=== PATIENT | male | born 1940 ===

== ENCOUNTER 2020-08-04 12:21 | Outpatient (REF) | payer MEDICARE, OTHER, SELFPAY ==
--- NOTE | 2020-08-04 | US_ITS ---
EXAMINATION: US RETROPERITONEAL LIMITED (RENAL ONLY) CLINICAL INFORMATION: Hyperlipidemia. COMPARISON: None TECHNIQUE: Real-time imaging of the kidneys. FINDINGS: RIGHT KIDNEY: 9.6 x 5.2 x 4.3 cm (SAG x AP x TRV). The kidney is normal in size, contour, and echogenicity. Renal cortical thickness is normal. No calculi or focal parenchymal lesions. No hydronephrosis. LEFT KIDNEY: 9.3 x 4.3 x 4.3 cm (SAG x AP x TRV). The kidney is normal in size, contour, and echogenicity. Renal cortical thickness is normal. There is a 1 x 0.8 x 1 cm cyst in the upper pole. No renal calculi, mass or hydronephrosis. US/US renal BI IMPRESSION: Small left renal cyst otherwise unremarkable exam.
== END 2020-08-04 12:22 | disposition home or self-care (01) ==
LOC: HO.US 12:21
PROVIDERS: Visit Provider Internal Medicine Nephrology
DX: R79.89 Other specified abnormal findings of blood chemistry (principal); E78.5 Hyperlipidemia, unspecified
CPT/HCPCS: 76775

== ENCOUNTER 2020-10-27 11:19 | Outpatient (REF) | payer MEDICARE, OTHER, SELFPAY ==
--- NOTE | ~2020-10-27 | US_ITS ---
EXAMINATION: US RETROPERITONEAL LIMITED (RENAL ONLY) CLINICAL INFORMATION: Hyperlipidemia. COMPARISON: None. TECHNIQUE: Routine renal ultrasound and Doppler imaging was performed. FINDINGS: RIGHT KIDNEY: 10.3 x 5.3 x 4.8 cm (SAG x AP x TRV). The kidney is normal in size, contour, and echogenicity. Renal cortical thickness is normal. No calculi or focal parenchymal lesions. No hydronephrosis. LEFT KIDNEY: 9.4 x 4.4 x 4.4 cm (SAG x AP x TRV). The kidney is normal in size, contour, and echogenicity. Renal cortical thickness is normal. There is anechoic upper pole cyst measuring 1.5 x 1.1 x 1.3 cm. No hydronephrosis. On renal Doppler evaluation: Right kidney: Proximal renal artery velocity measures 86.7 cm/second, mid segment measures 116 cm/second and distal segment measures 99.5 cm/second. Renal aortic ratio measures 1.5 cm. The average segmental resistive index measures 0.76 cm. Left kidney: Proximal left renal artery velocity measures 128 cm/second, mid segment measures 129 cm/second, distal segment measures 107 cm/second. Renal aortic ratio measures 1.6. Average resistive index measures 0.77 US/US renal doppler IMPRESSION: No evidence of renal artery stenosis in either kidney. Small left renal upper pole cyst measuring 1.5 cm.
--- NOTE | ~2020-10-27 | US_ITS ---
EXAMINATION: US RETROPERITONEAL LIMITED (RENAL ONLY) CLINICAL INFORMATION: Hyperlipidemia. COMPARISON: None. TECHNIQUE: Routine renal ultrasound and Doppler imaging was performed. FINDINGS: RIGHT KIDNEY: 10.3 x 5.3 x 4.8 cm (SAG x AP x TRV). The kidney is normal in size, contour, and echogenicity. Renal cortical thickness is normal. No calculi or focal parenchymal lesions. No hydronephrosis. LEFT KIDNEY: 9.4 x 4.4 x 4.4 cm (SAG x AP x TRV). The kidney is normal in size, contour, and echogenicity. Renal cortical thickness is normal. There is anechoic upper pole cyst measuring 1.5 x 1.1 x 1.3 cm. No hydronephrosis. On renal Doppler evaluation: Right kidney: Proximal renal artery velocity measures 86.7 cm/second, mid segment measures 116 cm/second and distal segment measures 99.5 cm/second. Renal aortic ratio measures 1.5 cm. The average segmental resistive index measures 0.76 cm. Left kidney: Proximal left renal artery velocity measures 128 cm/second, mid segment measures 129 cm/second, distal segment measures 107 cm/second. Renal aortic ratio measures 1.6. Average resistive index measures 0.77 US/US renal BI IMPRESSION: No evidence of renal artery stenosis in either kidney. Small left renal upper pole cyst measuring 1.5 cm.
== END 2020-10-27 11:20 | disposition home or self-care (01) ==
LOC: HO.US 11:19
PROVIDERS: Visit Provider Internal Medicine Nephrology
DX: R79.89 Other specified abnormal findings of blood chemistry (principal); E78.5 Hyperlipidemia, unspecified
CPT/HCPCS: 76775; 93975